=== PATIENT | male | born 1975 | race American Indian/Alaskan Native ===

== ENCOUNTER 2021-04-06 22:32 | Emergency (ER) | payer OTHER ==
[2021-04-06] MEDS ORDERED: LIDOCAINE 1%/EPINEPHRINE 1:100,000 VIAL (20 ML) INFILTRATI ONE (22:50)
[2021-04-06] MEDS ORDERED: LIDOCAINE (1%) 10 MG/1 ML VIAL 20 ML MDV ONE (22:54)
[2021-04-06] MEDS ORDERED: SODIUM CHLORIDE IRRI 500 ML 500 ML IR ONE ×2 (23:16→23:35)
[2021-04-06] MEDS ORDERED: SODIUM CHLORIDE 0.9% 1000 ML 1,000 ML ONE (23:49)
[2021-04-06] MEDS ORDERED: ceFAZolin/NS 1 GM/50 ML 1 GM/50 ML BAG IV ONE (23:51)
[2021-04-06] MEDS ORDERED: TETANUS,DIPH,PERTUSS(ACELL) VACCINE 0.5 ML SYRINGE IM ONE (23:51)
[2021-04-06] MEDS ORDERED: SODIUM CHLORIDE 0.9% 1000 ML 1,000 ML IV ONE (23:51)
--- NOTE | 2021-04-07 00:09 | Emergency Department Report ---
- General Chief Complaint: Laceration/Recheck/Suture Stated Complaint: LT HAND LAC Time Seen by Provider: 04/06/21 22:49 Source: patient Mode of arrival: Ambulatory Limitations: No Limitations - History of Present Illness Initial Comments: 46-year-old male, no past medical history, presents to ED after accidentally cutting her left thumb with a kitchen knife. Triage nurse noted arterial bleeding. Dressings placed in triage. -: minutes(s) (30) Extremity Location: Left: Hand (thumb) Place: home Patient Tetanus UTD: No Context: accidental Associated Symptoms: denies: loss of feeling/numbness, unable to move injured part - Related Data Allergies Allergy/AdvReac Type Severity Reaction Status Date / Time No Known Allergies Allergy Verified 04/06/21 23:51 ED Review of Systems ROS: Stated complaint: LT HAND LAC Other details as noted in HPI Comment: All other systems reviewed and negative Musculoskeletal: as per HPI Neurological: denies: numbness ED Past Medical Hx - Past Medical History Previous Medical History?: No - Surgical History Past Surgical History?: No - Social History Smoking Status: Unknown if ever smoked Substance Use Type: None ED Physical Exam - General Limitations: No Limitations General appearance: alert, in no apparent distress - Head Head exam: Present: atraumatic, normocephalic - Eye Eye exam: Present: normal appearance, EOMI - ENT ENT exam: Present: mucous membranes moist - Neck Neck exam: Present: normal inspection - Respiratory Respiratory exam: Present: normal lung sounds bilaterally. Absent: respiratory distress - Cardiovascular Cardiovascular Exam: Present: regular rate, normal rhythm - GI/Abdominal GI/Abdominal exam: Absent: distended - Extremities Exam Extremities exam: Present: other (left thumb with a laceration along the longitudinal axis of the thumb with left thumb fileted open; approx 5 cm in length; arterial bleeding present; able to flex and extend the joint) - Neurological Exam Neurological exam: Present: alert, oriented X3. Absent: motor sensory deficit - Psychiatric Psychiatric exam: Present: normal affect, normal mood - Skin Skin exam: Present: warm, dry, intact, normal color ED Course Vital Signs 04/06/21 04/06/21 04/07/21 22:35 23:00 00:00 Temperature 98 F 98 F 98 F Pulse Rate 89 85 80 Respiratory 18 18 18 Rate Blood Pressure 72/37 99/53 106/59 [Right] O2 Sat by Pulse 100 99 100 Oximetry 04/07/21 04/07/21 01:00 01:18 Temperature 98 F 98 F Pulse Rate 89 80 Respiratory 18 18 Rate Blood Pressure 108/66 110/68 [Right] O2 Sat by Pulse 100 100 Oximetry - Reevaluation(s) Reevaluation #1: 04/07/21 23:41 Pt arrived w/ arterial bleeding from thumb laceration. BP cuff was blown up on left forearm for approx 5 min to stop bleeding so that I could asses the loc ation of the bleeding. Thumb was irrigated with 500 cc normal saline. 5-0 vicryl was used to tie off 2 small arterial bleeds. BP cuff was removed. Pt with good cap refill. Gauze soaked w/ saline placed in between laceration. Thumb then wrapped in dry gauze and pressure dressing applied using Coban. Reevaluation #2: 04/07/21 00:19 Coban and gauze dressings removed and thumb reassessed. Thumb remains pink. Cap refill is normal. New dressings re-applied. Reevaluation #3: 04/07/21 01:41 Pt re-assessed. BP stable. Pt has no complaints. No bleeding from dressings. - Consultations Consultation #1: 04/07/21 00:[address] Francois. ED Medical Decision Making - Lab Data Result diagrams: 04/06/21 23:54 - Radiology Data Radiology results: report reviewed, image reviewed - Medical Decision Making 46-year-old male presents to ED after accidentally cutting his left thumb with a kitchen knife. Patient with arterial bleeding from the thumb. Hypotensive. Arterial bleeding controlled. Patient was given 2 L bolus of IV fluids with improvement of blood pressure. Hematocrit normal. X-ray shows no evidence of fracture. Patient also given Ancef and tetanus shot. He will be transferred to [place], where he has been accepted by Dr. Francois, hand surgeon. Critical Care Time: Yes Critical care time in (mins) excluding proc time.: 35 Critical care attestation.: If time is entered above; I have spent that time in minutes in the direct care of this critically ill patient, excluding procedure time. Critical Care Time: 35 min ED Disposition Clinical Impression: Laceration of thumb, left, complicated, Hypotension due to blood loss Disposition: [id number] PSY HOSP/PSY UNIT Is pt being admited?: No Condition: Stable Referrals: MARANDA CORDOVA MD [Primary Care Provider] - 3-5 Days Time of Disposition: 00:10
[2021-04-07 00:42] LABS: Hematocrit 35.5 % (35.5-45.6); Hemoglobin 12.7 gm/dl (11.8-15.2)
[2021-04-07] MEDS ORDERED: SODIUM CHLORIDE 0.9% 1000 ML 1,000 ML IV ONE (00:44)
--- NOTE | 2021-04-07 00:54 | XRay Report ---
LEFT FINGER(S) 3 VIEW(S) INDICATION / CLINICAL INFORMATION: thumb laceration COMPARISON: None available. FINDINGS: BONES / JOINT(S): No acute fracture or subluxation. No significant arthritis. SOFT TISSUES: Soft tissue laceration of the tip of the left thumb. Moderate thumb soft tissue swellin g. No radiopaque foreign body. ADDITIONAL FINDINGS: None. Signer Name: Tex Moore MD Signed: 04/07/2021 12:49 AM Workstation Name: [id number]
[2021-04-07 01:19] VITALS: BP 110/68
== END 2021-04-07 02:05 ==
LOC: ED 22:32
DX: S61.012A Laceration without foreign body of left thumb without damage to nail, initial encounter (principal); I95.89 Other hypotension; W26.0XXA Contact with knife, initial encounter; Y93.89 Activity, other specified; Y92.89 Other specified places as the place of occurrence of the external cause; Y99.8 Other external cause status
CPT/HCPCS: 12002; 36415; 73140; 85014; 85018; 86850; 86900; 86901; 90471; 90715; 96361; 96365; 99291; J0690; J7030